=== PATIENT | female | born 1940 | race Caucasian/White ===

== ENCOUNTER 2017-01-25 12:59 | Emergency (ER) | payer MEDICARE ==
[~2017-01-25] VITALS: Ht 154.9 cm; Wt 90.0 kg
[~2017-01-25 12:59] MED LIST: ALPRAZOLAM0.5 M2 PO; ALPRAZOLAM0.5 MG PO; AMLODIPINE2.5 MG PO; ANTIVERT PO; ANTIVERT12.5 MG PO; ASPIRIN325 MG PO; ATORVASTATIN CA20 MG PO; AUGMENTIN875TAB PO; AZITHROMYCIN500 MG PO; BIOTUSSIN PO; CELEXA20 MG PO; CREON 20 OR; CREON12000 UNT OR; CREON12000 UNT PO; DIOVAN HCT320 MG/25 PO; DIOVAN40 MG OR; FIORICET PO; FLONASE NASAL50 MCG; HYDROCHLOROT12.5 MG PO; HYDROCHLOROTHIAZIDE PO; HYDROCODONE/ACE1 TAB PO; KEFLEX500 MG PO; LEXAPRO10 MG PO; LEXAPRO20 MG PO; LORTAB 10 PO; LORTAB 1010 MG PO; LORTAB 5 OR; LORTAB 5/3255 MG PO; LORTAB5 PO; LOSARTAN POT100 MG PO; LOSARTAN POT25 MG PO; LOSARTAN POT50 MG PO; LOSARTAN POTASS50 MG PO; LOSARTAN/HCT1 TA2 PO; Lexapro PO; MECLIZINE25 MG PO; MEDDOSEPAK PO; METO50TA52 OR; NAPROSYN375 MG OR; NAPROXEN500 MG PO; OXY1; PREDNISONE10 MG PO; PREVACID15 M1 OR; PREVACID15 M3 PO; PROAIR HFA IN; PROTONIX40 M2 PO; Protonix PO; RANITIDINE150 M1 PO; TRANSDERM-SCOP1.5 MG TOP; ULTRAM50 MG OR; VALIUM5 MG PO; XANAX0.5 MG PO; ZANTAC300 MG PO; ZOFRAN ODT4 MG PO; ZOLOFT25 MG OR; [UNRECOGNIZED DRUG - REMARK]
[2017-01-25 13:52] LABS: HEMATOCRIT 36.5 % (37.0-47.0); HEMOGLOBIN 12.1 g/dl (12.0-16.0); IMMATURE GRANULOCYTES 0.4 % (0.0-1.0); MEAN CELL VOLUME 88.6 fL CALC (80.0-100.0); MEAN CORPUSCULAR HGB 29.4 pG CALC (26.0-32.0); MEAN CORPUSCULAR HGB CONC 33.2 g/L CALC (32.0-36.0); NEUT# 1.95 thou/uL (2.00-7.15); RED BLOOD COUNT 4.12 mill/uL (4.20-5.60); RED CELL DISTRI WIDTH 13.1 % (11.5-15.5)
[2017-01-25 14:09] LABS: ALBUMIN 4.1 g/dL (3.2-5.0); ALKALINE PHOSPHATASE 76 u/l (38-126); ANION GAP 17 (6-22 (CALC)); BILIRUBIN, TOTAL 0.8 mg/dL (0.0-1.4); BUN 23 mg/dL (8-23); BUN/CREATININE RATIO 19 (12-20 (CALC)); CALCIUM 9.5 mg/dL (8.4-10.2); CARBON DIOXIDE 25 mmol/l (22-30); CHLORIDE 100 mmol/l (95-108); CREATININE 1.2 mg/dL (0.5-1.0); GFR 43 ML/MIN (>=60 (CALC)); GFR FOR AFR.AMER. 53 ML/MIN (>=60 (CALC)); GLUCOSE 191 mg/dL (82-115); POTASSIUM 3.6 mmol/l (3.5-5.1); SGOT/AST 38 u/l (9-36); SGPT/ALT 33 u/l (11-66); SODIUM 138 mmol/l (137-146); TOTAL PROTEIN 7.5 g/dL (6.3-8.2)
[2017-01-25 14:20] LABS: MYOGLOBIN 320 ng/mL (0 - 62)
[2017-01-25 15:16] LABS: URINE BILIRUBIN - DIPSTICK NEGATIVE (NEGATIVE); URINE BLOOD DIPSTICK NEGATIVE (NEGATIVE); URINE CLARITY TURBID; URINE COLOR YELLOW; URINE GLUCOSE - DIPSTICK NEGATIVE (NEGATIVE); URINE KETONE NEGATIVE (NEGATIVE); URINE LEUK ESTERASE NEGATIVE (NEGATIVE); URINE NITRITE - DIPSTICK NEGATIVE (Negative); URINE PROTEIN - DIPSTICK NEGATIVE (NEG-TRACE); URINE SPECIFIC GRAVITY 1.025; URINE UROBILINOGEN - DIPSTICK 0.2 E.U./dL (0.2)
[2017-01-25 17:42] VITALS: BP 125/65
== END 2017-01-25 17:54 | disposition home or self-care (01) ==
LOC: ED 12:59
PROVIDERS: Emergency Medicine
DX: J20.9 Acute bronchitis, unspecified (principal); I10 Essential (primary) hypertension; K21.9 Gastro-esophageal reflux disease without esophagitis; E78.5 Hyperlipidemia, unspecified; R94.31 Abnormal electrocardiogram [ECG] [EKG]; R07.89 Other chest pain; Z85.038 Personal history of other malignant neoplasm of large intestine; Z90.49 Acquired absence of other specified parts of digestive tract

== ENCOUNTER 2017-02-07 20:19 | Inpatient (IN) | payer MEDICARE ==
[~2017-02-07] VITALS: Ht 154.9 cm; Wt 87.0 kg
[2017-02-07 21:47] LABS: HEMATOCRIT 35.3 % (37.0-47.0); HEMOGLOBIN 12.4 g/dl (12.0-16.0); IMMATURE GRANULOCYTES 0.9 % (0.0-1.0); MEAN CELL VOLUME 83.3 fL CALC (80.0-100.0); MEAN CORPUSCULAR HGB 29.2 pG CALC (26.0-32.0); MEAN CORPUSCULAR HGB CONC 35.1 g/L CALC (32.0-36.0); NEUT# 5.88 thou/uL (2.00-7.15); RED BLOOD COUNT 4.24 mill/uL (4.20-5.60); RED CELL DISTRI WIDTH 13.2 % (11.5-15.5)
[2017-02-07 21:54] LABS: ALBUMIN 3.9 g/dL (3.2-5.0); BILIRUBIN, TOTAL 2.2 mg/dL (0.0-1.4); CALCIUM 9.6 mg/dL (8.4-10.2); CREATININE 2.2 mg/dL (0.5-1.0); POTASSIUM 3.1 mmol/l (3.5-5.1); TOTAL PROTEIN 7.2 g/dL (6.3-8.2)
[2017-02-07 22:16] LABS: ACT PARTIAL THROMBO TIME 18.6 SECONDS (20.0-32.5); PROTHROMBIN TIME 11.2 SECONDS (9.0-12.5)
[2017-02-07 22:47] LABS: URINE BILIRUBIN - DIPSTICK NEGATIVE (NEGATIVE); URINE BLOOD DIPSTICK NEGATIVE (NEGATIVE); URINE CLARITY CLEAR; URINE COLOR YELLOW; URINE GLUCOSE - DIPSTICK NEGATIVE (NEGATIVE); URINE KETONE NEGATIVE (NEGATIVE); URINE LEUK ESTERASE NEGATIVE (NEGATIVE); URINE NITRITE - DIPSTICK NEGATIVE (Negative); URINE PH 5.5 (4.5-8.0); URINE PROTEIN - DIPSTICK NEGATIVE (NEG-TRACE); URINE SPECIFIC GRAVITY >=1.030; URINE UROBILINOGEN - DIPSTICK 0.2 E.U./dL (0.2)
[2017-02-07] MEDS ORDERED: METFORMIN500 MG PO (22:47)
[2017-02-07 23:06] LABS: INFLUENZA A NONE DETECTED (NONE DETECT); INFLUENZA B NONE DETECTED (NONE DETECT)
[2017-02-08] VITALS (16 sets, daily range): BP systolic 91–138; BP diastolic 39–79
[2017-02-08 05:02] LABS: HEMATOCRIT 30.1 % (37.0-47.0); HEMOGLOBIN 10.5 g/dl (12.0-16.0); IMMATURE GRANULOCYTES 0.8 % (0.0-1.0); MEAN CELL VOLUME 85.3 fL CALC (80.0-100.0); MEAN CORPUSCULAR HGB 29.7 pG CALC (26.0-32.0); MEAN CORPUSCULAR HGB CONC 34.9 g/L CALC (32.0-36.0); NEUT# 3.48 thou/uL (2.00-7.15); RED BLOOD COUNT 3.53 mill/uL (4.20-5.60); RED CELL DISTRI WIDTH 13.2 % (11.5-15.5)
[2017-02-08 05:08] LABS: ALBUMIN 2.9 g/dL (3.2-5.0); BILIRUBIN, TOTAL 1.9 mg/dL (0.0-1.4); CALCIUM 8.3 mg/dL (8.4-10.2); CREATININE 1.8 mg/dL (0.5-1.0); POTASSIUM 3.2 mmol/l (3.5-5.1); TOTAL PROTEIN 5.7 g/dL (6.3-8.2)
[2017-02-08 14:13] LABS: C. DIFFICILE TOXIN A&B NEGATIVE (NEGATIVE)
[2017-02-09] VITALS (14 sets, daily range): BP systolic 97–121; BP diastolic 43–65
[2017-02-09 05:51] LABS: HEMATOCRIT 30.5 % (37.0-47.0); HEMOGLOBIN 10.4 g/dl (12.0-16.0); IMMATURE GRANULOCYTES 0.8 % (0.0-1.0); MEAN CELL VOLUME 86.9 fL CALC (80.0-100.0); MEAN CORPUSCULAR HGB 29.6 pG CALC (26.0-32.0); MEAN CORPUSCULAR HGB CONC 34.1 g/L CALC (32.0-36.0); NEUT# 3.44 thou/uL (2.00-7.15); RED BLOOD COUNT 3.51 mill/uL (4.20-5.60); RED CELL DISTRI WIDTH 13.6 % (11.5-15.5)
[2017-02-09 06:11] LABS: CALCIUM 8.7 mg/dL (8.4-10.2); CREATININE 1.1 mg/dL (0.5-1.0); MAGNESIUM 1.9 mg/dL (1.6-2.3); POTASSIUM 3.6 mmol/l (3.5-5.1)
[2017-02-10 04:45] VITALS: BP 120/63
[2017-02-10 06:29] LABS: HEMATOCRIT 30.9 % (37.0-47.0); HEMOGLOBIN 10.3 g/dl (12.0-16.0); IMMATURE GRANULOCYTES 0.6 % (0.0-1.0); MEAN CELL VOLUME 87.3 fL CALC (80.0-100.0); MEAN CORPUSCULAR HGB 29.1 pG CALC (26.0-32.0); MEAN CORPUSCULAR HGB CONC 33.3 g/L CALC (32.0-36.0); NEUT# 3.23 thou/uL (2.00-7.15); RED BLOOD COUNT 3.54 mill/uL (4.20-5.60); RED CELL DISTRI WIDTH 13.6 % (11.5-15.5)
[2017-02-10 07:07] LABS: ANION GAP 13 (6-22 (CALC)); BUN 10 mg/dL (8-23); BUN/CREATININE RATIO 11 (12-20 (CALC)); CALCIUM 8.7 mg/dL (8.4-10.2); CARBON DIOXIDE 20 mmol/l (22-30); CHLORIDE 114 mmol/l (95-108); CREATININE 0.9 mg/dL (0.5-1.0); GFR > 60 ML/MIN (>=60 (CALC)); GFR FOR AFR.AMER. > 60 ML/MIN (>=60 (CALC)); GLUCOSE 89 mg/dL (82-115); POTASSIUM 3.5 mmol/l (3.5-5.1); SODIUM 142 mmol/l (137-146)
[2017-02-10 08:40] VITALS: BP 121/56
[2017-02-10 11:14] VITALS: BP 113/70
[2017-02-10] MEDS ORDERED: LORTAB 5-325 MG1 TAB PO (14:30)
[2017-02-10 15:50] VITALS: BP 126/64
== END 2017-02-10 17:43 | DRG 683 ==
LOC: ENPENDDIS → ED 20:19 → ED-I 20:45 → ED 02-08 01:58 → MS2 02-08 01:59 → ICU 02-08 01:59 → MS2 02-09 14:30
PROVIDERS: Emergency Medicine; Internal Medicine; ADMIT Internal Medicine; ATTEND Internal Medicine
DX: N17.9 Acute kidney failure, unspecified (principal); K86.1 Other chronic pancreatitis; E87.8 Other disorders of electrolyte and fluid balance, not elsewhere classified; E11.9 Type 2 diabetes mellitus without complications; E86.0 Dehydration; I10 Essential (primary) hypertension; E78.5 Hyperlipidemia, unspecified; K21.9 Gastro-esophageal reflux disease without esophagitis; F41.9 Anxiety disorder, unspecified; F32.9 Major depressive disorder, single episode, unspecified; R09.82 Postnasal drip; R51 Headache; Z79.84 Long term (current) use of oral hypoglycemic drugs; Z91.81 History of falling; Z90.49 Acquired absence of other specified parts of digestive tract; Z85.038 Personal history of other malignant neoplasm of large intestine; Z87.891 Personal history of nicotine dependence

== ENCOUNTER 2018-08-29 19:15 | Emergency (ER) | payer MEDICARE ==
[~2018-08-29] VITALS: Ht 154.9 cm; Wt 80.0 kg
[~2018-08-29 19:15] MED LIST changes: +LORTAB 5-325 MG1 TAB PO; +METFORMIN500 MG PO
[2018-08-29 20:42] LABS: HEMATOCRIT 33.1 % (37.0-47.0); HEMOGLOBIN 11.3 g/dl (12.0-16.0); IMMATURE GRANULOCYTES 0.4 % (0.0-5.0); MEAN CELL VOLUME 90.7 fL CALC (80.0-100.0); MEAN CORPUSCULAR HGB CONC 34.1 g/L CALC (32.0-36.0); NEUT# 3.99 thou/uL (2.00-7.15); RED BLOOD COUNT 3.65 mill/uL (4.20-5.60); RED CELL DISTRI WIDTH 12.9 % (11.5-15.5)
[2018-08-29 20:51] LABS: ALBUMIN 4.1 g/dL (3.2-5.0); BILIRUBIN, TOTAL 1.1 mg/dL (0.0-1.4); CREATININE 1.3 mg/dL (0.5-1.0); POTASSIUM 4.2 mmol/l (3.5-5.1); TOTAL PROTEIN 7.2 g/dL (6.3-8.2)
[2018-08-29 21:50] VITALS: BP 148/68
[2018-08-29] MEDS ORDERED: MIRALAX3350 N1 PO (22:17)
== END 2018-08-29 21:50 | disposition home or self-care (01) ==
LOC: ED 19:15
PROVIDERS: Emergency Medicine
DX: K56.41 Fecal impaction (principal); R10.11 Right upper quadrant pain